=== PATIENT | male | born 1965 ===

== ENCOUNTER 2018-05-26 09:24 | Emergency (ER) | payer OTHER ==
[2018-05-26] MEDS ORDERED: TDAP ADULT 0.5 ML INJ (BOOSTRIX) IM ONE (09:36)
--- NOTE | 2018-05-26 09:55 | EDPHY ---
H & P Time Seen by Provider: 05/26/18 09:31 HPI/ROS: HPI Left calf laceration. 53-year-old male by private vehicle with his . This patient was at work. He was standing up on the back of a truck. He accidentally fell and got his left calf caught on a piece of metal that was extending from the back end of the truck. He sustained a deep laceration to the mid left calf. He is able to ambulate on it. He denies any other injury or complaint. No loss of sensation or weakness distally to the wound. He cannot remember the last time he had a tetanus shot. ROS: Constitutional: No fever, no chills. No weakness. Musculoskeletal: No back pain. No neck pain. As above. No other extremity pain. Skin: No rashes. Laceration as above. Neurological: No focal weakness or altered sensation. Past medical history: No significant past medical history. Social history: Nonsmoker. No alcohol. Here with his . Physical Exam: General Appearance: Alert, no distress. This patient is responding to questions appropriately and in full sentences. This patient appears well- hydrated and well-nourished. Head: Normocephalic atraumatic. Eyes: Pupils equal and round no pallor or injection. No lid edema, erythema or injection. Left calf exam: Significant for a large flap v-shaped laceration, full- thickness through the subcutaneous fat to the fascia mid left calf. Please see wound care note for further details. There is no evidence of tendon involvement. The left lower extremity is neurovascularly intact. No pulsatile bleeding or expanding hematoma. The muscle compartments of the left leg are soft. Plantar flexion and dorsiflexion function intact and normal. Neurological: Motor sensory function is grossly intact. Cranial nerves are normal. Gait is normal. Skin: Warm and dry, no rashes. Musculoskeletal: Neck is supple and nontender. No midline cervical, thoracic, lumbar, sacral tenderness on palpation. The chest wall is stable to AP and lateral palpation. Extremities are symmetrical except. All joints range without pain or impingement. No tenderness on palpation of the long bones in the bilateral upper and bilateral lower extremities. Psychiatric: No agitation. No depression. Database: EKG: Imaging: Left tib-fib x-ray series: Soft tissue defect mid calf musculature. No evidence of radiopaque foreign body or bony involvement. Interpreted by me. Procedures: Procedure: Laceration repair. Verbal consent was obtained from the patient. The 12 cm laceration on the left mid calf muscle body was anesthetized in the usual fashion. The wound was irrigated with copious amounts of sterile normal saline, draped and explored to its base with a gloved finger. No foreign body was identified on exploration. No tendon injury was identified. The wound was repaired with 25, 3.0 Ethilon sutures placed in interrupted fashion. The wound repair was tolerated well and there were no complications. The procedure was performed by myself. Emergency department course: Triage vital signs reviewed. He is moderately hypertensive. Vital signs are otherwise normal. After suture repair as noted above, wound care was discussed with the patient. The patient was given a Boostrix vaccination. He feels comfortable going home with his . He is up and ambulatory without difficulty. The left lower extremity is neurovascularly intact. Infection precautions and return to emergency department precautions were reviewed with the patient thoroughly. All of his questions were answered. The patient was discharged home in good condition with his . Differential Diagnosis: The differential diagnosis on this patient includes but is not limited to laceration to the left calf. Significant neurovascular injury, retained foreign body, bony injury unlikely. This represents a partial list of diagnoses considered. These considerations are based on history, physical exam , past history, reassessment and diagnostic testing. Smoking Status: Never smoked Constitutional: Initial Vital Signs Temperature (C) 36.5 C 05/26/18 09:32 Heart Rate 64 05/26/18 09:32 Respiratory Rate 18 05/26/18 09:32 Blood Pressure 158/103 H 05/26/18 09:32 O2 Sat (%) 95 05/26/18 09:32 O2 Delivery Mode Room Air Allergies/Adverse Reactions: No Known Allergies Allergy (Unverified 05/26/18 09:31) Home Medications: Medication Instructions Recorded Hydrocodone/APAP 5/325 [Garland 1 - 2 tab PO Q4-6PRN PRN #10 tab 05/26/18 5/325 (*)] Medical Decision Making - Diagnostics Imaging Results: Imaging Impressions Tibia/Fibula X-Ray 05/26/18 09:45 Impression: 1. Soft tissue laceration over the posteromedial calf. 2. Old healed fracture contour deformity involving the fibular diaphysis. 3. Chondrocalcinosis at the level of the knee. - Data Points Medications Given: Discontinued Medications Diphtheria/Tetanus/Acell Pertussis (Boostrix) 0.5 ml IM .ONCE ONE Stop: 05/26/18 09:37 Last Admin: 05/26/18 09:51 Dose: 0.5 ml Departure - Departure Disposition: Home, Routine, Self-Care Clinical Impression: Laceration of left calf without complication Condition: Good Instructions: Care For Your Stitches (ED), Laceration (ED) Additional Instructions: Read and follow provided instructions. Follow-up with your primary care physician in 2-3 days for re-evaluation and wound check. Sutures are to be removed in 14 days. Ibuprofen dosin mg every 6 hours with meals for the next 3 days only. Take only as needed for pain. Narcotic pain medication: 1-2 every 4-6 hours as needed for pain. Do not drive while on this medication. Return to the emergency department for worsening pain, bleeding, loss of sensation, weakness, redness, discoloration, drainage of pus, fever or other serious concerns. Referrals: NONE *PRIMARY CARE P,. [Primary Care Provider] - As per Instructions Prescriptions: Hydrocodone/APAP 5/325 [Garland 5/325 (*)] 1 - 2 tab PO Q4-6PRN PRN #10 tab PRN Reason: Pain, Moderate
[2018-05-26 11:18] VITALS: BP 137/85
== END 2018-05-26 11:18 | disposition home or self-care (01) ==
LOC: CED 09:24
PROC: 0HQLXZZ Repair Left Lower Leg Skin, External Approach (ICD-10-PCS; principal; 2018-05-26)
DX: S81.812A Laceration without foreign body, left lower leg, initial encounter (principal); Z23 Encounter for immunization; W17.89XA Other fall from one level to another, initial encounter; Y99.0 Civilian activity done for income or pay
CPT/HCPCS: 73590-PO; 90471-ER; 99283-ER